=== PATIENT | female | born 1935 | race Caucasian/White ===

== ENCOUNTER 2018-03-11 21:57 | Inpatient (IN) | payer OTHER ==
[~2018-03-11] VITALS: Ht 165.1 cm; Wt 52.2 kg
[~2018-03-11 21:57] MED LIST: ALBUTEROL2.5 MG/3 M IH; AMOXICILLIN875 MG PO; COMBIVENT RESPIM4 GM IH; IPRATROPIU0.2 MG/1 M IH; PREDNISONE10 MG PO; SOOTHE LUBRICA1 EACH BOTH EYES; VENLAFAXINE HC150 M1 PO
[2018-03-11 22:50] LABS: BASOPHIL (%) 0.4 % (0-1); EOSINOPHIL (%) 0.1 % (0-5); HEMATOCRIT 47.7 % (36.0-46.0); IMMATURE GRANULOCYTE (%) 0.6 % (0.0-0.7); LYMPHOCYTE (%) 7.4 % (15-42); LYMPHOCYTE COUNT 0.5 K/uL (1.0-2.8); MCH 30.9 PG (29.0-34.0); MCHC 31.4 G/DL (30.0-36.0); MCV 98.4 FL (83-99); MONOCYTE (%) 13.2 % (3-12); NEUTROPHIL (%) 78.3 % (45-76); NEUTROPHIL COUNT 5.7 K/uL (1.8-6.4); PLATELET COUNT 194 K/uL (156-360); RBC DIS.WIDTH-CV 12.7 % (11.8-14.6); RBC DIS.WIDTH-SD 45.6 % (39-53); RED BLOOD COUNT 4.85 M/uL (3.80-5.20); WHITE BLOOD COUNT 7.2 K/uL (4.1-10.2)
[2018-03-11 23:25] LABS: CHLORIDE 96 mEq/L (99-109); POTASSIUM 4.5 mEq/L (3.7-5.4); SODIUM 137 mEq/L (136-147)
[2018-03-11 23:27] LABS: GLUCOSE 103 mg/dL (70-99); TOTAL PROTEIN 4.9 g/dL (6.4-8.3)
[2018-03-11 23:29] LABS: TOTAL BILIRUBIN 0.5 mg/dL (0.0-1.0)
[2018-03-11 23:30] LABS: ALKALINE PHOSPHATASE 52 IU/L (3-129)
[2018-03-11 23:31] LABS: CREATININE 0.5 mg/dL (0.6-1.3); GFR ESTIMATE (CALCULATED) > 59 mL/min/
[2018-03-11 23:32] LABS: AST (GOT) 18 IU/L (2-34); DIRECT BILIRUBIN 0.2 mg/dL (0.0-0.3); UREA NITROGEN (BUN) 13 mg/dL (9-23)
[2018-03-11 23:34] LABS: ALT (GPT) 19 IU/L (3-49)
[2018-03-11 23:36] LABS: TROP-I INTERPRETATION NEGATIVE; TROPONIN-I 0.06 ng/mL (0.0-0.30)
[2018-03-12 00:57] LABS: APPEARANCE SL.HAZY ((CLEAR)); BILIRUBIN NEGATIVE; BLOOD SMALL; COLOR YELLOW ((YELLOW)); GLUCOSE (STRIP) 50; KETONES 5; LEUKOCYTES SMALL; NITRITE NEGATIVE; PROTEIN (STRIP) 100; SPECIFIC GRAVITY 1.021 (1.000-1.030)
[2018-03-12 01:04] LABS: BACTERIA RARE /HPF; EPITHELIAL CELLS 2+ /HPF; HYALINE CASTS 0-5 /LPF; MUCUS 3+ /LPF; UCUL ADDED? YES
[2018-03-12 04:16] VITALS: BP 131/62
[2018-03-12 04:49] VITALS: BP 131/62
[2018-03-12 06:33] LABS: TROP-I INTERPRETATION NEGATIVE; TROPONIN-I 0.05 ng/mL (0.0-0.30)
[2018-03-12 09:12] VITALS: BP 127/58
[2018-03-12 12:30] LABS: INTER. NORMALIZED RATIO 1.2
[2018-03-12 12:33] LABS: PTT 27.4 SEC (25-37); TROP-I INTERPRETATION NEGATIVE; TROPONIN-I 0.05 ng/mL (0.0-0.30)
[2018-03-12 12:37] VITALS: BP 111/61
[2018-03-12 13:01] LABS: LACTATE DEHYDROGENASE 180 IU/L (20-246); TOTAL PROTEIN 5.8 G/DL (6.4-8.3)
[2018-03-12 13:02] LABS: GLUCOSE 192 mg/dL (70-99)
[2018-03-12 14:59] LABS: TYPE OF FLUID THORACENTESIS
[2018-03-12 15:18] VITALS: BP 121/63
[2018-03-12 15:51] LABS: APPEARANCE SLIGHTLY CLOUDY; BODY FLUID EOSINOPHILS 0 % (0-25); BODY FLUID RBC'S 2000 /MM^3 (0-100); BODY FLUID WBC'S 758 /MM^3 (0-500); MONONUCLEAR WBC'S 27 %; POLYNUCLEAR WBC'S 73 % (0-25)
[2018-03-12 16:01] LABS: BODY FLUID GLUCOSE 233 MG/DL; BODY FLUID LDH 56 IU/L; BODY FLUID PROTEIN < 3.0 G/DL
[2018-03-12 19:21] VITALS: BP 116/59
[2018-03-13 00:28] VITALS: BP 140/66
[2018-03-13 04:10] VITALS: BP 106/65
[2018-03-13 05:19] LABS: HEMOGLOBIN 13.7 G/DL (11.9-15.5); MCH 30.9 PG (29.0-34.0); MCHC 31.9 G/DL (30.0-36.0); MCV 96.8 FL (83-99); PLATELET COUNT 191 K/uL (156-360); RBC DIS.WIDTH-CV 12.3 % (11.8-14.6); RBC DIS.WIDTH-SD 44.1 % (39-53); RED BLOOD COUNT 4.44 M/uL (3.80-5.20); WHITE BLOOD COUNT 7.1 K/uL (4.1-10.2)
[2018-03-13 06:35] LABS: CHLORIDE 83 MEQ/L (99-109); CREATININE 0.6 MG/DL (0.6-1.3); GFR ESTIMATE (CALCULATED) > 59 mL/min/; GLUCOSE 132 mg/dL (70-99); POTASSIUM 4.1 MEQ/L (3.7-5.4); SODIUM 139 MEQ/L (136-147); UREA NITROGEN (BUN) 14 mg/dL (9-23)
[2018-03-13 06:41] LABS: CARBON DIOXIDE (BICARBONATE) > 40.0 MEQ/L (20-31)
[2018-03-13 09:02] LABS: LACTATE DEHYDROGENASE 190 IU/L (20-246); TOTAL PROTEIN 5.4 G/DL (6.4-8.3)
[2018-03-13 09:05] VITALS: BP 127/61
[2018-03-13 11:04] VITALS: BP 149/79
[2018-03-13] MEDS ORDERED: ELIQUIS5 MG PO ×2 (13:33→13:34)
[2018-03-13 15:53] VITALS: BP 124/84
[2018-03-13 19:58] VITALS: BP 102/53
[2018-03-14 00:48] VITALS: BP 112/64
[2018-03-14 03:55] VITALS: BP 95/54
[2018-03-14 06:13] LABS: CHLORIDE 77 MEQ/L (99-109); CREATININE 0.5 MG/DL (0.6-1.3); GFR ESTIMATE (CALCULATED) > 59 mL/min/; GLUCOSE 126 mg/dL (70-99); POTASSIUM 3.6 MEQ/L (3.7-5.4); SODIUM 140 MEQ/L (136-147); UREA NITROGEN (BUN) 18 mg/dL (9-23)
[2018-03-14 06:15] LABS: CARBON DIOXIDE (BICARBONATE) > 40.0 MEQ/L (20-31)
[2018-03-14 09:01] VITALS: BP 112/53
[2018-03-14 11:07] VITALS: BP 98/52
[2018-03-14] MEDS ORDERED: K-DUR10 MEQ PO (11:53)
[2018-03-14] MEDS ORDERED: LISINOPRIL2.5 MG PO (11:53)
[2018-03-14] MEDS ORDERED: KEFLEX500 MG PO (11:53)
[2018-03-14] MEDS ORDERED: PREDNISONE5 MG PO (11:53)
[2018-03-14] MEDS ORDERED: FUROSEMIDE40 MG PO (11:53)
[2018-03-14] MEDS ORDERED: ASPIR-LOW81 MG PO (11:53)
[2018-03-14] MEDS ORDERED: LOPRESSOR25 MG PO (11:53)
== END 2018-03-14 16:40 | disposition home health service (06) | DRG 291 ==
LOC: EME → EDBD 21:57 → 4EAST 03-12 03:08 → EDOF 03-12 03:08 → 4EAST 03-12 03:59
PROVIDERS: Emergency Medicine; Hospitalist; Internal Medicine; Internal Medicine Cardiovascular Disease
PROC: 0W993ZZ Drainage of Right Pleural Cavity, Percutaneous Approach (ICD-10-PCS; principal; 2018-03-12)
DX: I11.0 Hypertensive heart disease with heart failure (principal); I50.21 Acute systolic (congestive) heart failure; I26.99 Other pulmonary embolism without acute cor pulmonale; J98.11 Atelectasis; J44.1 Chronic obstructive pulmonary disease with (acute) exacerbation; N39.0 Urinary tract infection, site not specified; L03.115 Cellulitis of right lower limb; L03.116 Cellulitis of left lower limb; J96.11 Chronic respiratory failure with hypoxia; E87.6 Hypokalemia; I42.9 Cardiomyopathy, unspecified; M06.9 Rheumatoid arthritis, unspecified; I36.1 Nonrheumatic tricuspid (valve) insufficiency; I49.3 Ventricular premature depolarization; Z66 Do not resuscitate; Z87.891 Personal history of nicotine dependence; Z99.81 Dependence on supplemental oxygen; Q85.9 Phakomatosis, unspecified
CPT/HCPCS: 70450; 71045; 71275; 76942; 80048; 80076; 81003; 82945; 82947; 83615; 83615 91; 83880; 84155; 84157; 84484; 85025; 85027; 85379; 85610; 85730; 87070; 87075; 87086; 87205; 89051; 93005; 93306; 93970; 94640; 94799; 99281; 99285; A6214; J0690; J1100; J1644; J1940; J2405; J2930; J7040; J7512

== ENCOUNTER 2018-03-16 10:00 | Inpatient (IN) | payer OTHER ==
[~2018-03-16] VITALS: Ht 157.5 cm; Wt 46.9 kg
[~2018-03-16 10:00] MED LIST changes: +ASPIR-LOW81 MG PO; +ELIQUIS5 MG PO; +FUROSEMIDE40 MG PO; +K-DUR10 MEQ PO; +KEFLEX500 MG PO; +LISINOPRIL2.5 MG PO; +LOPRESSOR25 MG PO; +PREDNISONE5 MG PO
[2018-03-16 11:31] LABS: BASOPHIL (%) 0 % (0-1); EOSINOPHIL (%) 0.2 % (0-5); HEMATOCRIT 41.7 % (36.0-46.0); HEMOGLOBIN 13.4 G/DL (11.9-15.5); IMMATURE GRANULOCYTE (%) 0.5 % (0.0-0.7); LYMPHOCYTE COUNT 0.7 K/uL (1.0-2.8); MCH 31.4 PG (29.0-34.0); MCHC 32.1 G/DL (30.0-36.0); MCV 97.7 FL (83-99); MONOCYTE (%) 10.2 % (3-12); MONOCYTE COUNT 0.8 K/uL (0-0.8); NEUTROPHIL (%) 80.1 % (45-76); NEUTROPHIL COUNT 6.4 K/uL (1.8-6.4); PLATELET COUNT 145 K/uL (156-360); RBC DIS.WIDTH-CV 12.6 % (11.8-14.6); RBC DIS.WIDTH-SD 45.3 % (39-53); RED BLOOD COUNT 4.27 M/uL (3.80-5.20)
[2018-03-16 11:39] LABS: ALBUMIN 3.6 g/dL (3.2-4.8)
[2018-03-16 11:40] LABS: SODIUM 135 mEq/L (136-147)
[2018-03-16 11:42] LABS: GLUCOSE 106 mg/dL (70-99)
[2018-03-16 11:44] LABS: TOTAL BILIRUBIN 0.6 mg/dL (0.0-1.0)
[2018-03-16 11:45] LABS: ALKALINE PHOSPHATASE 53 IU/L (3-129)
[2018-03-16 11:46] LABS: CREATININE 0.7 mg/dL (0.6-1.3); GFR ESTIMATE (CALCULATED) > 59 mL/min/
[2018-03-16 11:49] LABS: TROP-I INTERPRETATION NEGATIVE; TROPONIN-I 0.13 ng/mL (0.0-0.30)
[2018-03-16 11:59] LABS: ALT (GPT) 45 IU/L (3-49); AST (GOT) 56 IU/L (2-34); CARBON DIOXIDE (BICARBONATE) > 46.0 mEq/L (20-31); CHLORIDE 78 mEq/L (99-109); POTASSIUM 4.6 mEq/L (3.7-5.4); TOTAL PROTEIN 5.8 g/dL (6.4-8.3); UREA NITROGEN (BUN) 33 mg/dL (9-23)
[2018-03-16 13:48] LABS: APPEARANCE CLEAR ((CLEAR)); BILIRUBIN NEGATIVE; BLOOD SMALL; COLOR YELLOW ((YELLOW)); GLUCOSE (STRIP) NEGATIVE; KETONES NEGATIVE; LEUKOCYTES NEGATIVE; NITRITE NEGATIVE; PROTEIN (STRIP) 30; SPECIFIC GRAVITY 1.018 (1.000-1.030); UROBILINOGEN 0.2 MG/DL (0.2-1.0)
[2018-03-16 13:50] LABS: BACTERIA NONE SEEN /HPF; CALCIUM OXALATE CRYSTALS 1+ /HPF; EPITHELIAL CELLS RARE /HPF; MUCUS NONE SEEN /LPF; RED BLOOD CELLS 30-40 /HPF (0-5); UCUL ADDED? NO; WHITE BLOOD CELLS 0-5 /HPF (0-5)
[2018-03-16 17:28] VITALS: BP 133/64
[2018-03-16 17:57] LABS: TROP-I INTERPRETATION NEGATIVE; TROPONIN-I 0.18 ng/mL (0.0-0.30)
[2018-03-16 19:30] VITALS: BP 105/52
[2018-03-16 19:54] VITALS: BP 114/58
[2018-03-17] VITALS (7 sets, daily range): BP systolic 110–137; BP diastolic 53–80
[2018-03-17 01:01] LABS: TROP-I INTERPRETATION NEGATIVE; TROPONIN-I 0.11 ng/mL (0.0-0.30)
[2018-03-17 05:19] LABS: HEMATOCRIT 41.6 % (36.0-46.0); HEMOGLOBIN 13.2 G/DL (11.9-15.5); MCH 30.3 PG (29.0-34.0); MCHC 31.7 G/DL (30.0-36.0); MCV 95.6 FL (83-99); PLATELET COUNT 154 K/uL (156-360); RBC DIS.WIDTH-CV 12.3 % (11.8-14.6); RBC DIS.WIDTH-SD 43.8 % (39-53); RED BLOOD COUNT 4.35 M/uL (3.80-5.20); WHITE BLOOD COUNT 6.7 K/uL (4.1-10.2)
[2018-03-17 05:35] LABS: TROP-I INTERPRETATION NEGATIVE; TROPONIN-I 0.11 ng/mL (0.0-0.30)
[2018-03-17 05:49] LABS: CHLORIDE 81 MEQ/L (99-109); CREATININE 0.5 MG/DL (0.6-1.3); GFR ESTIMATE (CALCULATED) > 59 mL/min/; GLUCOSE 113 mg/dL (70-99); POTASSIUM 3.9 MEQ/L (3.7-5.4); SODIUM 133 MEQ/L (136-147); UREA NITROGEN (BUN) 27 mg/dL (9-23)
[2018-03-17 05:59] LABS: CARBON DIOXIDE (BICARBONATE) > 40.0 MEQ/L (20-31)
[2018-03-17 06:35] LABS: COMMENTS - BLOOD GASES C+A+; DEVICE NC; O2 FLOW 4 L/MIN; PCO2 77 mm Hg (35-45); PO2 166 mm Hg (80-100); SITE LR; pH 7.45 (7.35-7.45)
[2018-03-17 06:36] LABS: BASE EXCESS 24.2 mEq/L (-3 to +3); BICARBONATE 53.5 mEq/L (22-26); CARBOXY HGB 1.5 % (0-5); METHEMOGLOBIN 1.3 % (0-1.5)
[2018-03-18 03:40] VITALS: BP 148/66
[2018-03-18 07:08] VITALS: BP 140/65
[2018-03-18 11:02] VITALS: BP 104/53
[2018-03-18 15:10] VITALS: BP 110/51
[2018-03-18 19:37] VITALS: BP 105/68
[2018-03-18 23:45] VITALS: BP 102/58
[2018-03-19 03:45] VITALS: BP 101/58
[2018-03-19 07:16] VITALS: BP 110/65
[2018-03-19 11:07] VITALS: BP 92/57
[2018-03-19] MEDS ORDERED: SPIRONOLACTONE25 MG PO (11:58)
[2018-03-19] MEDS ORDERED: ELIQUIS5 MG PO (11:58)
[2018-03-19] MEDS ORDERED: PREDNISONE10 MG PO (11:59)
== END 2018-03-19 15:08 | DRG 291 ==
LOC: EME 10:00 → 5SOUTH 14:59 → EDOF 14:59 → ENRESERV 16:31 → 5SOUTH 17:15
PROVIDERS: Emergency Medicine; Hospitalist; Internal Medicine Cardiovascular Disease
DX: I11.0 Hypertensive heart disease with heart failure (principal); I50.23 Acute on chronic systolic (congestive) heart failure; I26.99 Other pulmonary embolism without acute cor pulmonale; J44.1 Chronic obstructive pulmonary disease with (acute) exacerbation; J96.11 Chronic respiratory failure with hypoxia; Z99.81 Dependence on supplemental oxygen; R04.0 Epistaxis; T45.515A Adverse effect of anticoagulants, initial encounter; I42.9 Cardiomyopathy, unspecified; I44.7 Left bundle-branch block, unspecified; R54 Age-related physical debility; Z68.1 Body mass index [BMI] 19.9 or less, adult; F32.9 Major depressive disorder, single episode, unspecified; Z66 Do not resuscitate; Z87.891 Personal history of nicotine dependence; Z60.2 Problems related to living alone; Z79.82 Long term (current) use of aspirin; Z85.828 Personal history of other malignant neoplasm of skin; Z90.710 Acquired absence of both cervix and uterus
CPT/HCPCS: 36600; 71045; 80048; 80053; 81003; 83605; 83880; 84484; 85025; 85027; 87040; 93005; 94640; 94799; 99281; 99285; G8978 GP CJ; G8979 GP CH; J1940; J7512